=== PATIENT | female | born 1995 | race African-American/Black ===

== ENCOUNTER 2016-11-10 06:19 | Day surgery (SDC) | payer OTHER ==
[2016-11-10] VITALS (12 sets, daily range): BP systolic 125–141; BP diastolic 61–83; PULSE 88–110; RESP 14–23; O2SAT 96–100
[~2016-11-10] VITALS: Ht 152.4 cm; Wt 68.2 kg
[2016-11-10] MEDS: Lactated Ringer's 1,000 ML IV SCH ×2 (06:10→09:02)
[~2016-11-10 06:19] MED LIST: CeFAZolin Inj 2 GM in IV Premix 1 EACH IV ONE; DIPH25CA6 PO; NORG1TAB6 PO
[2016-11-10] MEDS ORDERED: Ketamine 10 mg/mL 20 mL Inj ONE (06:20)
[2016-11-10] MEDS ORDERED: Dexamethasone 4 mg/mL Inj ONE (06:20)
[2016-11-10] MEDS ORDERED: fentaNYL-PF 50 mCg/mL 2 mL Inj ONE (06:20)
[2016-11-10] MEDS ORDERED: Propofol 10,000 mCg/mL 20 mL Inj ONE (06:20)
[2016-11-10] MEDS ORDERED: HYDROmorphone 1 mg/mL Inj ONE (06:20)
[2016-11-10] MEDS ORDERED: Ondansetron 2 mg/mL 2 mL Inj ONE (06:20)
[2016-11-10] MEDS ORDERED: Esmolol 10,000 mCg/mL 10 mL Inj ONE (06:20)
[2016-11-10] MEDS ORDERED: Lactated Ringer's 1,000 ML IV SCH (07:49)
[2016-11-10] MEDS ORDERED: Lactated Ringer's 500 ML IV PRN (07:49)
[2016-11-10] MEDS ORDERED: HYDROmorphone 1 mg/mL Inj IVPUSH PRN (07:50)
[2016-11-10] MEDS ORDERED: Labetalol 5 mg/mL 20 mL Inj IV PRN (07:50)
[2016-11-10] MEDS ORDERED: hydrALAZINE 20 mg/mL Inj IVPUSH PRN (07:50)
[2016-11-10] MEDS ORDERED: EPHEDrine Sulfate 50 mg/mL Inj IVPUSH PRN (07:50)
[2016-11-10] MEDS ORDERED: MetoCLOpramide 5 mg/mL 2 mL Inj IVPUSH PRN (07:50)
[2016-11-10] MEDS ORDERED: Dexamethasone 4 mg/mL Inj IVPUSH PRN (07:50)
[2016-11-10] MEDS ORDERED: Phenylephrine 10,000 mCg/mL Inj IVPUSH PRN (07:50)
[2016-11-10] MEDS ORDERED: Ondansetron 2 mg/mL 2 mL Inj IVPUSH PRN (07:50)
--- NOTE | 2016-11-10 08:14 | PCM.HPANE ---
Patient Data Date of Service: Nov 10, 2016 Surgeon Admitting Provider: Attending Provider:J Carlos George MD Primary Care Physician:Colten Other Provider:Stewart Gutierrez Anesthesia Reason for Visit Bilateral Breast Macromastia, Back Pain Ht/WT & BMI Height (Feet): 5 Height (Inches): 0.00 Weight (Kilograms): 68.2 Body Mass Index 29.00 Allergies Coded Allergies: No Known Allergies (Unverified , 11/03/16) Past Anesthesia History Anesthesia History: Denies:: Abnormal Airway (Never surgery), Anesthesia Reactions (never has surgery), Difficult Intubation, Fam Anesthesia Reaction, Fam Malignant Hypertherm, Malignant Hyperthermia Diabetes History Hx Diabetes?: No MRSA MRSA: No Medications Home Meds Incl Beta Alexey: No Reported Medications diphenhydrAMINE HCl (Benadryl)25 Mg [id number] Mg PO Q4 PRN For Itching Ref 0 11/03/16 Norgestimate-Ethinyl Estradiol (Ortho-Cyclen)1 Each Tablet1 Each PO DAILY 11/03/16 History History of ENT Problems?: No HEENT History: Denies:: Abnormal Airway (Never surgery) Difficult Intubation Dysphagia Hearing Problem Sinus Problem TMJ Denture Type: None Teeth Condition: Within Normal Limits Hx of Heart Problems?: No Cardiovascular History: Denies:: AICD Abdominal Aortic Aneurism Atrial Fibrillation Cardiac Surgery Chest Pain Congestive Heart Failure Coronary Artery Disease Edema Heart Murmur Hypertension Irregular Heartbeat Pacemaker Peripheral Vascular Rheumatic Fever Thrombophlebitis Valvular Heart Disease Hx of Respiratory Problem?: No Respiratory History: Denies:: Asthma COPD Chest Surgery Cough Dyspnea Emphysema Hemoptysis Pneumonia Pulmonary Embolism Tuberculosis Use of C-PAP Machine Use of Inhalers / NEBS Hx Neurologic Problems?: No Neurological History: Denies:: Alzheimer's Disease CVA Dementia Dizziness Headaches Multiple Sclerosis Parkinson's Disease Seizures TIA Hx of GI Problems?: No Hx of Problems?: No Genitourinary History: Denies:: Urinary Tract Infection HX of Peritoneal Dialysis: No Female Hx: Positive for:: Problems with Breasts? (ultrasound 2nd to beign lump left breast) Denies:: Currently Skin History: Denies:: History Skin Disorders? Pressure Ulcers Hx Musculoskeletal Problems?: No Musculoskeletal History: Denies:: Back Injury Degenerative Joint Joint Replacement Musculoskeletal Trauma Osteoarthritis Rheumatoid Arthritis Systemic Lupus Hx of Psycho/Social Problems?: No Hx Surgeries?: No Other History: Denies:: Cancer Hospitalization Thyroid Disease History Blood Transfusions: Positive for:: Accept Blood Products? Denies:: Blood Transfusions Hx Diabetes: No Hx Alcohol Use: NoHx Substance Use: No Stop/Bang Treated for Sleep Apnea?: No Do You Have a CPAP Machine?: No S-Snoring: Do You Snore Loudly: No T-Tired: feel tired, fatigued: No O-Obsered: Observed not breath: No P-Blood Pressure: treated: No B- Body Mass Index > 35 kg/m2: No A- Age over 50: No N- Neck Large Circumference: No G- Gender Male: No RAN Total Score: 0 RAN Risk Assessment: Low Risk, <3 Yes Risk Assessment Category Category 1A: Patient has history of documented sleep apnea, and HAS NOT received any narcotic, sedative or anesthesia administration during this stay. Category 1B: Patient has history of documented sleep apnea, and HAS received any narcotic , sedative or anesthesia administration during this stay Category 2: Patient has SUSPECTED Obstructive Sleep Apnea, and HAS received any narcotic , sedative or anesthesia administration during this stay. Category 3: Patient has SUSPECTED Obstructive Sleep Apnea and HAS NOT received narcotic, sedative or anesthesia administration during this stay. Category 4: Outpatient in Procedural Areas with known sleep apnea or who screen positive for High Risk via the STOP/BANG questionnaire. Exam Exam Vital Signs Vital Signs Date Time Temp Pulse Resp B/P Pulse Ox O2 Delivery O2 Flow Rate FiO2 11/10/16 06:52 36.8 100 18 133/83 100 Room Air General Appearance: Alert, Oriented X3, Cooperative, No Acute Distress HEENT/AIRWAY: MP 2 Lungs: Clear to Auscultation, Normal Air Movement Heart: Exam Unremarkable, Regular Rate/Rhythm, No Murmurs/Rubs/Gallops Meds/Labs/Diagnostics Admission Meds Current Medications Lactated Ringer's (Lr) 1,000 ml @ 120 mls/hr Q8H20M IV Last administered on t 06:10; Start 11/10/16 at 05:00; Stop 11/10/16 at 13:19 Plan Impression Patient chart reviewed, patient interviewed and anesthestic plan with risks, benefits, and alternatives discussed, and informed consent obtained. NPO per Anesth. Guidelines: Yes ASA Physical Status: ASA1 Normal Healthy Anesthetic Plan: GA Bene/Risks/Altern/Consents: Yes HP Complete Prior to Induction: Yes Carrillo Diego MD Nov 10, 2016 08:14
[2016-11-10] MEDS: fentaNYL-PF 50 mCg/mL 2 mL Inj IVPUSH PRN ×4 (11:46→12:18)
[2016-11-10] MEDS: oxyCODONE-Acetamin 5-325 mg Tablet PO PRN ×2 (12:27→12:50)
--- NOTE | 2016-11-10 12:49 | PCM.ANEP1 ---
Post Anesthesia PACU Phase 1 Assessment Vital Signs Vital Signs Date Time Temp Pulse Resp B/P Pulse Ox O2 Delivery O2 Flow Rate FiO2 11/10/16 12:21 36.5 91 16 125/70 97 Room Air 11/10/16 11:54 88 14 128/80 96 Room Air 11/10/16 11:45 95 16 129/70 99 Room Air 11/10/16 11:40 109 18 136/73 98 Room Air 11/10/16 11:30 36.6 96 20 130/70 97 Room Air 11/10/16 11:25 110 16 127/61 99 Room Air 11/10/16 11:20 102 23 132/68 97 Room Air 11/10/16 11:15 103 22 133/66 96 Room Air 11/10/16 11:13 36.1 110 16 141/74 96 Room Air 11/10/16 06:52 36.8 100 18 133/83 100 Room Air Anesthetic Administered: GA Level of Alertness: Awake, talking Pain: Yes Nausea or Vomiting: No CV Function & Hydration Stable: Yes Airway Device: Lungs: Clear to Auscultation, Normal Air Movement Summary Pain worse than she expected. This was her first surgery. It was worse than she expected. Treating her now. PACU Phase 2 Assessment Complications: No Follow up Care: No Patient Instructions Provided: N/A Carrillo Diego MD Nov 10, 2016 12:49
[2016-11-10] MEDS ORDERED: Lactated Ringer's 1,000 ML IV ONE (14:45)
--- NOTE | 2016-11-11 11:46 | OP ---
[address] [address] OPERATIVE REPORT PATIENT: DIPAK PRECIADO : 1995 MR#: [id number] ADMIT: 11/10/2016 JOB ID: [id number] DATE OF SURGERY: 11/10/2016 PREOPERATIVE DIAGNOSIS(ES): Bilateral symptomatic macromastia. POSTOPERATIVE DIAGNOSIS(ES): Bilateral symptomatic macromastia. PROCEDURE: Bilateral breast reduction. SURGEON: J Carlos George MD RUBBER TRIMMER: Travis Tinajero PA-C who was present for necessary retraction, exposure, and closure. ANESTHESIA: General anesthesia. ESTIMATED BLOOD LOSS: 30 cc. COMPLICATIONS: None apparent. SPECIMEN: Bilateral breast tissue to Pathology right side 0.8 kg, left side 0.81 kg. DRAINS: Bilateral #15 round El drains, one in each side. INDICATIONS FOR PROCEDURE: This is a 21-year-old female patient with a long history of bilateral symptomatic macromastia that has been refractory to routine management. The patient has been approved for bilateral breast reduction. This procedure is indicated for symptom relief. PROCEDURES AND FINDINGS: The patient was identified in the preoperative area. Surgical site was marked. With the patient in sitting position, I marked the sternal notch as well as bilateral inframammary fold. A Burr pattern incisions were also marked with a new nipple position at 18 cm from the sternal notch and the Burr limbs at 8 cm each. The patient was then taken back to the operating room and placed supine on the operating table. Appropriate time-outs were taken. General anesthesia was induced smoothly. I then completed the Burr pattern marking with the patient in supine position. The patient was then prepped and draped in the usual sterile manner. I first turned my attention to the right breast. With the nipple under slight tension, a 42 mm nipple sizer was used to sima the new nipple-areolar complex. Inferior and inferior pedicle was then marked that is 9 cm at its base. Incision was then made around the inferior pedicle as well as around the new nipple-areolar complex. The intervening skin was de-epithelialized. Incision was then made around the rest of the Burr pattern incision with a #10 blade. Incision was then deepened down into the subcutaneous tissue with electrocautery. I then elevated the superior skin flap. Medially the skin flap was started at approximately 2 cm and thickened to approximately 3 cm as I approached the pectoralis major fascia. Laterally, the skin flap was elevated along the posterior along the breast capsule down to the chest wall. I then developed the inferior pedicle by deepening the incision around the inferior pedicle down to the chest wall medially and laterally. Superiorly, the incision was deepened beyond the breast tissue and the posterior breast capsule was then followed down to the chest wall. The tissue between the inferior pedicle dissection and the skin flap dissection was then elevated off the chest wall and passed off to Pathology as a specimen. Hemostasis was obtained with electrocautery. At this point, the incisions were then temporarily stapled together. The new nipple-areolar complex was marked with a 42 mm nipple sizer. Centered as 7 cm from the inframammary fold. Incision was made with a #15 blade and then deepened with electrocautery through the skin flap allowing the keyhole to be removed and the nipple to be externalized. At this point, I turned my attention to the left breast and a similar reduction was carried out. The new nipple-areolar complex was marked with a 42 mm nipple sizer. An inferior pedicle was marked. Incisions were then made around the inferior pedicle and the new nipple-areolar complex with the intervening skin de-epithelialized. The skin flaps were elevated in a similar manner to the right side. Inferior pedicle was developed in a similar manner. The intervening soft tissue was elevated off the chest wall and passed off to Pathology as a specimen. Hemostasis was obtained with electrocautery. The incisions were then temporarily stapled together. A new nipple-areolar keyhole was made with a 42 mm nipple sizer centered at 7 cm from the inframammary fold. The incision was then made around the keyhole and then deepened through the skin flap with electrocautery. The nipple was externalized. The breasts had similar contour and volume at this point. A #15 round El drains were then placed into each surgical site, exiting at the lateral end of the inframammary incision. The incisions were then reapproximated first with a layer of 3-0 Monocryl deep dermal suture, followed by 4-0 Monocryl running subcuticular suture. The patient tolerated the procedure well. Needle count, sponge count, instrument counts were correct at the end of the procedure. The patient was extubated and transported to recovery in stable condition.
--- NOTE | 2016-11-16 09:31 | PATH ---
SURGICAL PATHOLOGY Attending Physician:J Carlos George CASE STATUS: Signed Out PATIENT NAME: DIPAK PRECIADO PID: [id number] : 1995 DATE COLLECTED:11/10/2016 00:00 SPECIMEN: 1: Breast Reduction 2: Breast Reduction CLINICAL HISTORY: MACROMASTIA, BACK PAIN 1). RIGHT BREAST TISSUE 0.80 KG 2). LEFT BREAST TISSUE 0.81 KG FINAL DIAGNOSIS: 1. Right Breast Tissue (0.80 kg), breast reduction: -Skin and subcutaneous tissue with no evidence of neoplasm. -Benign breast parenchyma with areas of stromal fibrosis. 2. Left Breast Tissue (0.81 kg), breast reduction: -Skin and subcutaneous tissue with no evidence of neoplasm. -Benign breast parenchyma with stromal fibrosis and scattered foci of duct ectasia. ICD10: N62 GROSS DESCRIPTION: The specimens are received in formalin, labeled patient's name, and sublabeled as the following: (1) right breast tissue; (2) left breast tissue. (1) The specimen consists of multiple pieces of breast tissue (800 g, 20.5 x 18.3 x 4.4 cm in aggregate) partially covered by skin (16.8 x 11.5 cm). The breast tissue is fibrofatty with no nodules, masses or lesions identified. The skin is brown and unremarkable. Section code: (1A, 1B) breast tissue, administrative representative. (2) The specimen consists of multiple pieces of breast tissue (810 g, 19.5 x 17.5 x 5.4 cm in aggregate) partially covered by skin (16.5 x 13.5 cm). The breast tissue is fibrofatty with no nodules, masses or lesions identified. The skin is brown and unremarkable. Section code: (2A, 2B) breast tissue, administrative representative. 11/11/16 ICD-9 CODES: CPT CODES: 1: 56269 2: 30351 Electronically Signed Out Real Javier MD [facility] [address], [place] [address] Technical component performed at [facility], [facility] [address], [place], [address]
== END 2016-11-10 23:59 | disposition home or self-care (01) ==
LOC: SAS 06:19
PROVIDERS: ATTEND Plastic Surgery
DX: N62 Hypertrophy of breast (principal); M54.6 Pain in thoracic spine
CPT/HCPCS: 19318; J0690; J1100; J1170; J1885; J2250; J2405; J2704; J3010; J7120